=== PATIENT | female | born 1965 | race Caucasian/White ===

== ENCOUNTER 2016-09-16 01:13 | Emergency (ER) | payer OTHER ==
--- NOTE | 2016-09-16 05:52 | DIAGNOSTIC IMAGING REPORT ---
PROCEDURE: XR CHEST 1 VIEW INDICATION: Shortness of breath, initial encounter TECHNIQUE: Portable AP view 01:56 a.m. COMPARISON: None. FINDINGS: Lungs are clear. Heart and mediastinum are normal. Thorax is normal. IMPRESSION: 1. Negative chest.
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
--- NOTE | 2016-09-16 18:20 | ED ORDER SUMMARY ---
..... Patient: KAYE HERNANDEZ OrderSheet [facility] VisitID: [id number] [place] [address] 51y, F Registration Date/Time: 09/16/2016 ORDER SHEET Weight: 62.5 kg (measured) Allergies: Unknown GENERAL ORDERS: Chest 1V Urgent (:48 09/16/2016 Juan Pablo FLEMING) (Ack 1:52 [facility]) (2:02 [facility]) Addiction Medicine Physician (Continuous) (:09/16/2016 Juan Pablo FLEMING) (Ack 1:52 [facility]) (1:52 [facility]) Cardiac Panel Stat (09/16/2016 Juan Pablo FLEMING) (Ack 1:52 [facility]) (1:54 HSoule) UA-Culture if indicated Urgent (:09/16/2016 Juan Pablo FLEMING) (Ack 1:52 [facility]) (3:33 [facility]) Urine Drug Screen Urgent (:09/16/2016 Juan Pablo FLEMING) (Ack 1:52 [facility]) (3:33 [facility]) Acetaminophen Level Urgent (:09/16/2016 Juan Pablo FLEMING) (Ack 1:52 [facility]) (1:57 [facility]) Ethyl Alcohol Urgent (:09/16/2016 Juan Pablo FLEMING) (Ack 1:52 [facility]) (1:57 [facility]) Salicylate Level Urgent (:09/16/2016 Juan Pablo FLEMING) (Ack 1:52 [facility]) (1:57 [facility]) Oxygen (2 L/min) (NC) (:09/16/2016 Juan Pablo FLEMING) (Ack 1:52 [facility]) (1:54 HSoule) Pulse oximeter (:09/16/2016 Juan Pablo FLEMING) (Ack 1:52 [facility]) (1:52 [facility]) EKG - ER Stat (01:49 09/16/2016 Juan Pablo FLEMING) (Ack 1:52 [facility]) (1:55 [facility]) MEDICATION ORDERS: IV FLUIDS: IV NS : initial bolus none -, then 250 mL/hr for 4h (NOW); Routine (01:48 09/16/2016 Juan Pablo FLEMING) (Ack 2:05 HSoule) (2:25 HSoule) Narcan IV 0.4 mg (NOW) (01:49 09/16/2016 Juan Pablo FLEMING) (Ack 1:54 HSoule) (1:58 Mark R.N.) Zofran IV 4 mg (NOW) (04:43 09/16/2016 HSoule verbal order read back to Juan Pablo FLEMING) (4:44 HSoule) ORDER SHEET NOTES: [Electronically signed by Leigh Powers R.N. (19:21 09/16/2016)] [Electronically signed by Martin Zhu MD (11:34 09/19/2016)] [Electronically signed by Juan Pablo Hancock MD (09:18 09/23/2016)] [Electronically locked/signed by Leigh Powers R.N. (19:21 09/16/2016)]
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
--- NOTE | 2016-09-16 18:20 | ED ORDER SUMMARY ---
..... Patient: KAYE HERNANDEZ OrderSheet [facility] VisitID: [id number] [place] [address] 51y, F Registration Date/Time: 09/16/2016 ORDER SHEET Weight: 62.5 kg (measured) Allergies: Unknown GENERAL ORDERS: Chest 1V Urgent (:48 09/16/2016 Juan Pablo FLEMING) (Ack 1:52 ALawrence ER Tech1) (2:02 ALawrence ER Tech1) Library Information Technician (Continuous) (:09/16/2016 Juan Pablo FLEMING) (Ack 1:52 ALawrence ER Tech1) (1:52 ALawrence ER Tech1) Cardiac Panel Stat (09/16/2016 Juan Pablo FLEMING) (Ack 1:52 ALawrence ER Tech1) (1:54 HSoule) UA-Culture if indicated Urgent (:09/16/2016 Juan Pablo FLEMING) (Ack 1:52 ALawrence ER Tech1) (3:33 ALawrence ER Tech1) Urine Drug Screen Urgent (:09/16/2016 Juan Pablo FLEMING) (Ack 1:52 ALawrence ER Tech1) (3:33 ALawrence ER Tech1) Acetaminophen Level Urgent (:09/16/2016 Juan Pablo FLEMING) (Ack 1:52 ALawrence ER Tech1) (1:57 ALawrence ER Tech1) Ethyl Alcohol Urgent (:09/16/2016 Juan Pablo FLEMING) (Ack 1:52 ALawrence ER Tech1) (1:57 ALawrence ER Tech1) Salicylate Level Urgent (:09/16/2016 Juan Pablo FLEMING) (Ack 1:52 ALawrence ER Tech1) (1:57 ALawrence ER Tech1) Oxygen (2 L/min) (NC) (:09/16/2016 Juan Pablo FLEMING) (Ack 1:52 ALawrence ER Tech1) (1:54 HSoule) Pulse oximeter (:09/16/2016 Juan Pablo FLEMING) (Ack 1:52 ALawrence ER Tech1) (1:52 ALawrence ER Tech1) EKG - ER Stat (01:49 09/16/2016 Juan Pablo FLEMING) (Ack 1:52 ALawrence ER Tech1) (1:55 ALawrence ER Tech1) MEDICATION ORDERS: IV FLUIDS: IV NS : initial bolus none -, then 250 mL/hr for 4h (NOW); Routine (01:48 09/16/2016 Juan Pablo FLEMING) (Ack 2:05 HSoule) (2:25 HSoule) Narcan IV 0.4 mg (NOW) (01:49 09/16/2016 Juan Pablo FLEMING) (Ack 1:54 HSoule) (1:58 Mark R.N.) Zofran IV 4 mg (NOW) (04:43 09/16/2016 HSoule verbal order read back to Juan Pablo FLEMING) (4:44 HSoule) ORDER SHEET NOTES: [Electronically signed by Leigh Powers R.N. (19:21 09/16/2016)] [Electronically signed by Martin Zhu MD (11:34 09/19/2016)] [Electronically signed by Juan Pablo Hancock MD (09:18 09/23/2016)] [Electronically locked/signed by Leigh Powers R.N. (19:21 09/16/2016)]
--- NOTE | 2016-09-23 09:18 | ED DISCHARGE INSTRUCTIONS ---
Patient: KAYE HERNANDEZ General Instructions [facility] VisitID: [id number] [place] [address] 51y, F Registration Date/Time: 09/16/2016 (Electronically signed by Juan Pablo Hancock MD 09/23/2016 9:18) Alcohol intoxication. Depression. Multiple deep abrasions to the right neck, right wrist and left wrist. INSTRUCTIONS Stay with responsible adult family member (or other responsible adult). No alcohol. Warnings: Further evaluation is necessary. GENERAL WARNINGS: Return or contact your physician immediately if your condition worsens or changes unexpectedly, if not improving as expected, or if other problems arise. Follow-up: Follow up with your doctor Keyona Ramsey at 4:30 PM as scheduled. Understanding of the discharge instructions verbalized by patient. ADDITIONAL INFORMATION Alcohol Intoxication Alcohol intoxication occurs when you drink alcohol faster than your liver can remove it from your system. Alcohol intoxication affects your judgment and coordination. Very high blood alcohol levels can cause coma, very slow breathing and even . If you drink alcohol every day, this may gradually cause permanent damage to your liver, brain, heart, pancreas and other organs. Alcohol use during may cause permanent damage to the growing baby. Home Care: Do not drink any more alcohol. DO NOT DRIVE until all effects of the alcohol have worn off. Get lots of rest over the next few days. Drink plenty of water and other non-alcoholic liquids. Try to eat regular meals. If you have been drinking heavily on a daily basis, you may go through alcohol withdrawl. This is also called the shakes or DTs. The usual symptoms last 3 to 4 days and may include nervousness, shakiness, nausea, sweating or sleeplessness. During this time, it is best that you stay with family or friends who can help and support you. You can also admit yourself to a residential detox program. If your symptoms are severe, contact your doctor for medicines to help. Follow Up: If alcohol is causing a problem in your life, these and other organizations can help you: Alcoholics Anonymous offers support through a self-help fellowship. There are no dues or fees. See the Yellow Pages and call for time and place of meetings. www.aa.org Candace offers support to families of alcohol users. 310.736.6596 www.al-anon.org National [place] On Alcoholism And Drug Dependence 735-886-5288 www.ncadd.org There are also inpatient or residential alcohol detox programs. Check the Internet or phonebook Yellow Pages under Drug Abuse & Treatment Centers. Get Prompt Medical Attention if any of the following occur: there) Depression Depression is one of the most common mental health problems today. It is not just a state of unhappiness or sadness. It is a true disease. The cause seems to be related to a decrease in chemicals that transmit signals in the brain. Having a family history of depression, alcoholism or suicide increases the risk. Chronic illness, chronic pain, migraine headaches and high emotional stress also increase the risk. Depression can cause many different symptoms, such as: -- Loss of appetite -- Over-eating -- Not being able to sleep -- Sleeping too much -- Tiredness not related to physical exertion -- Restlessness or irritability -- Slowness of movement or speech -- Feeling depressed or withdrawn -- Loss of interest in things you once enjoyed -- Difficulty in concentrating, poor memory, have trouble making decisions -- Thoughts of harming or killing oneself, or thoughts that life is not worth living -- Low self-esteem The best treatment for depression is a combination of medicine and psychotherapy. Antidepressant medicines can reduce suffering and can improve the ability to function during the depressed period. Therapy can offer emotional support and help you understand emotional factors that may be causing the depression. Home Care: 1) Be kind to yourself. Make it a point to do things that you enjoy (gardening, walking in nature, going to a movie, etc.). Reward yourself for small successes. 2) Take care of your physical body. Eat a balanced diet (low in saturated fat and high in fruits and vegetables). Establish an exercise plan at least 3 times a week for 30 minutes. Even mild-moderate exercise (like brisk walking) can make you feel better. 3) Avoid alcohol, which can make depression worse. Follow-Up with your doctor as advised. It is important to keep in contact with a health care provider until your symptoms begin to improve. Get Prompt Medical Attention if any of the following occur: -- Feeling extreme depression, fear, anxiety, or anger toward yourself or others -- Feeling out of control -- Feeling that you may try to harm yourself or another -- Hearing voices that others do not hear -- Seeing things that others do not see -- Cant sleep or eat for 3 days in a row Abrasions Abrasions are skin scrapes. Their treatment depends on how large and deep the abrasion is. Home Care: If you were given a bandage, change it once a day. If your bandage sticks to the wound, soak it in warm water until it loosens. Wash the area with soap and water to remove all the cream/ointment. You may do this in a sink, under a tub faucet or shower. Rinse off the soap and pat dry with a clean towel. Reapply cream/ointment according to your doctor's instructions. This will prevent infection and help prevent the bandage from sticking. Cover the wound with a fresh non-stick bandage (Telfa). Repeat steps 1 to 4 daily, or as directed by your doctor. If the bandage becomes wet or dirty, change it as soon as possible. You may use acetaminophen (Tylenol) or ibuprofen (Motrin, Advil) to control pain, unless another pain medicine was prescribed. [ NOTE : If you have chronic liver or kidney disease or ever had a stomach ulcer or GI bleeding, talk with your doctor before using these medicines.] Do not use ibuprofen in children under six months of age. Follow Up with your physician or this facility as directed by our staff. Most skin wounds heal within ten days. However, an infection may occur despite proper treatment. Therefore, look for the early signs of infection listed below. Get Prompt Medical Attention if any of the following occur: Increasing pain in the wound Increasing redness or swelling Pus coming from the wound Fever of 100.4F (38C) or higher, or as directed by your healthcare provider You have been given the following additional information: Alcohol Intoxication Depression Abrasion Stay with responsible adult family member (or other responsible adult). (Electronically signed by Martin Zhu MD 09/19/2016 11:34)
--- NOTE | 2016-09-23 09:19 | ED MED RECONCILIATION SUMMARY ---
Patient: KAYE HERNANDEZ Medication Reconciliation Report [facility] VisitID: [id number] [address] [place] [address] 51y, F Registration Date/Time: 09/16/2016 Weight: 62.5 kg Height/Length: 65 in. BMI: 23.0 ALLERGIES: Unknown The patient's Home Medications are listed below: Unknown. The source(s) of the original Home Medication information: patient The following Medications were given to the patient in the Emergency Department: Narcan [IVP] IVP 0.4 mg, administered: 09/16/2016 1:58:00 AM IV NS IV Fluids bolus 0, then 250 mL/hr, administered: 09/16/2016 1:50:00 AM Zofran [IVP] IVP 4 mg, administered: 09/16/2016 4:44:00 AM The following Medications were prescribed to the patient: None.
--- NOTE | 2016-09-23 09:19 | ED MAR SUMMARY ---
..... Medication Administration Record [facility] [address] [place] [address] Patient: KAYE HERNANDEZ Visit ID: [id number] 51y, F Weight: 62.5 kg Height/Length: 65 in BMI: 23 ALLERGIES: Unknown Start 01:50 09/16/2016 Mrata Echevarria, Medication Administered: IV NS (SALINE), Dose: IV Fluids over 4 hour(s), Rate: 250 mL/hr, Dispensed: 1000 mL bag, Site: #1 right AC. Medication Ordered: IV NS : initial bolus none -, then 250 mL/hr for 4h (NOW); Routine. Given 01:58 09/16/2016 Fahad Christensen R.N. Medication Administered: NARCAN [IVP] (NALOXONE HCL), Dose: 0.4 mg IVP over 1 minute(s), Site: #1 right AC. Medication Ordered: Narcan IV 0.4 mg (NOW). Given 04:44 09/16/2016 Marta Echevarria, Medication Administered: ZOFRAN [IVP] (ONDANSETRON HCL), Dose: 4 mg IVP over 1 minute(s), Site: #1 right AC. Medication Ordered: Zofran IV 4 mg (NOW).
--- NOTE | 2016-09-23 09:19 | ED MED RECONCILIATION SUMMARY ---
Patient: KAYE HERNANDEZ Medication Reconciliation Report [facility] VisitID: [id number] [address] [place] [address] 51y, F Registration Date/Time: 09/16/2016 Weight: 62.5 kg Height/Length: 65 in. BMI: 23.0 ALLERGIES: Unknown The patient's Home Medications are listed below: Unknown. The source(s) of the original Home Medication information: patient The following Medications were given to the patient in the Emergency Department: Narcan [IVP] IVP 0.4 mg, administered: 09/16/2016 1:58:00 AM IV NS IV Fluids bolus 0, then 250 mL/hr, administered: 09/16/2016 1:50:00 AM Zofran [IVP] IVP 4 mg, administered: 09/16/2016 4:44:00 AM The following Medications were prescribed to the patient: None.
--- NOTE | 2016-09-23 09:19 | ED MAR SUMMARY ---
..... Medication Administration Record [facility] [address] [place] [address] Patient: KAYE HERNANDEZ Visit ID: [id number] 51y, F Weight: 62.5 kg Height/Length: 65 in BMI: 23 ALLERGIES: Unknown Start 01:50 09/16/2016 Marta Echevarria, Medication Administered: IV NS (SALINE), Dose: IV Fluids over 4 hour(s), Rate: 250 mL/hr, Dispensed: 1000 mL bag, Site: #1 right AC. Medication Ordered: IV NS : initial bolus none -, then 250 mL/hr for 4h (NOW); Routine. Given 01:58 09/16/2016 Fahad Christensen R.N. Medication Administered: NARCAN [IVP] (NALOXONE HCL), Dose: 0.4 mg IVP over 1 minute(s), Site: #1 right AC. Medication Ordered: Narcan IV 0.4 mg (NOW). Given 04:44 09/16/2016 Marta Echevarria, Medication Administered: ZOFRAN [IVP] (ONDANSETRON HCL), Dose: 4 mg IVP over 1 minute(s), Site: #1 right AC. Medication Ordered: Zofran IV 4 mg (NOW).
== END 2016-09-16 18:25 | disposition home or self-care (01) ==
LOC: ED SRH 01:13
DX: S60.812A Abrasion of left wrist, initial encounter (principal); S60.811A Abrasion of right wrist, initial encounter; S10.91XA Abrasion of unspecified part of neck, initial encounter; F32.9 Major depressive disorder, single episode, unspecified; F10.129 Alcohol abuse with intoxication, unspecified; X58.XXXA Exposure to other specified factors, initial encounter; Y93.9 Activity, unspecified; Y92.59 Other trade areas as the place of occurrence of the external cause; Y99.9 Unspecified external cause status; F17.210 Nicotine dependence, cigarettes, uncomplicated
CPT/HCPCS: 90004; 90100; 90616; 92010; 92610; 92720; 92760; 92761; 92762; 92763; 92764; 92765; 92766; 92767; 92780; 95059; 97000